=== PATIENT | female | born 1985 ===

== ENCOUNTER 2023-03-23 16:05 | Inpatient (IN) | payer OTHER, MEDICAID ==
[~2023-03-23] VITALS: Ht 167.6 cm; Wt 121.6 kg
[~2023-03-23 16:05] MED LIST: IBU600 MG PO; PERCOCET 325 MG1 TA2 PO; PROFERRIN ES12 MG PO; STOOL SOFTENER100 M2 PO
[2023-03-31] VITALS (14 sets, daily range): BP systolic 83–137; BP diastolic 43–74; PULSE 55–81; TEMP 97.8
[2023-03-31] MEDS ORDERED: LR 1,000 ML IV SCH ×2 (05:30→07:15)
[2023-03-31 06:30] LABS: BASO % 0.3 % (0.0-2.0); EOS # 0.2 K/mm3 (0.0-0.7); EOS % 2.2 % (0.0-4.0); GRAN # 5.2 K/mm3 (1.4-6.5); GRAN % 58.8 % (42.2-75.2); HEMOGLOBIN 10.5 g/dl (12.5-16.0); LYMPH # 2.8 K/mm3 (1.2-3.4); LYMPH % 32.3 % (20.0-51.0); MEAN CELL VOLUME 89 fl (80.0-100.0); MEAN CORPUSCULAR HEMOGLOBIN 29 pg (27-31); MEAN CORPUSCULAR HGB CONC 33 g/dl (33.0-37.0); MEAN PLATELET VOLUME 9.9 fl (7.4-10.4); MONO # 0.5 K/mm3 (0.1-0.6); MONO % 5.4 % (1.7-9.3); PLATELET COUNT 233 K/mm3 (130-400); RED BLOOD COUNT 3.59 M/mm3 (4.10-5.30); REDCELL DISTRIBUTION WIDTH-CV 14.2 % (11.5-14.5)
[2023-03-31 06:32] LABS: HEMATOCRIT 31.9 % (37.0-47.0)
[2023-03-31] MEDS ORDERED: METHYLFOLATE1 EAC1 PO (06:36)
[2023-03-31] MEDS ORDERED: PRENATAL TABLET PO (06:38)
[2023-03-31] MEDS ORDERED: Ketorolac 30 MG/ML VIAL ONE (06:56)
[2023-03-31] MEDS ORDERED: Phenylephrine 10 MG/ML VIAL ONE (06:56)
[2023-03-31] MEDS ORDERED: Oxytocin 10 UNITS/ML VIAL ONE (06:56)
[2023-03-31] MEDS ORDERED: dexAMETHasone 10 MG/ML VIAL ONE (06:56)
[2023-03-31] MEDS ORDERED: NS 30 ML IV ONE (06:56)
[2023-03-31] MEDS ORDERED: Ondansetron 4 MG/2 ML VIAL ONE (06:56)
[2023-03-31] MEDS ORDERED: EPINEPHrine 1 MG/1 ML Ampule ONE (06:56)
[2023-03-31] MEDS ORDERED: Magnes Hydrox (MOM) 80 MG/ML 30 ML CUP PO PRN (08:30)
[2023-03-31] MEDS ORDERED: Loratadine 10 MG TAB PO PRN (08:30)
[2023-03-31] MEDS ORDERED: Prenatal Vitamins/Iron/FA TAB PO SCH (09:00)
[2023-03-31] MEDS ORDERED: LR 1,000 ML IV PRN (09:30)
[2023-03-31] MEDS ORDERED: Naloxone 0.4 MG/ML VIAL IV PRN (09:30)
[2023-03-31] MEDS ORDERED: oxyCODONE 5 MG TAB PO PRN (09:30)
[2023-03-31] MEDS ORDERED: diphenhydrAMINE 50 MG/ML 1 ML VIAL IV PRN (09:30)
[2023-03-31] MEDS ORDERED: Ondansetron 4 MG/2 ML VIAL IV PRN ×2 (09:30)
[2023-03-31] MEDS ORDERED: Morphine 4 MG/ML VIAL IV PRN (09:30)
[2023-03-31] MEDS ORDERED: Acetaminophen 500 MG TAB PO SCH (09:30)
[2023-03-31] MEDS ORDERED: Measles/Mumps/Rubella Virus Vaccine Live w Diluent 0.5 ML VIAL SQ SCH (09:30)
--- NOTE | 2023-03-31 13:04 | NUR ---
Tylenol 1000 mg given as ordered and per protocol. Denies any other needs at this time.
[2023-03-31] MEDS ORDERED: Ibuprofen 600 MG TAB PO SCH (14:22)
--- NOTE | 2023-03-31 14:22 | NUR ---
Visits with family. Ibuprofen 600 mg given per request and as ordered.
[2023-03-31] MEDS ORDERED: Sennosides/Docusate 8.6-50 MG TAB PO SCH (17:00)
[2023-03-31] MEDS ORDERED: traZODone 50 MG TAB PO PRN (21:00)
[2023-04-01 00:30] VITALS: BP 125/49; PULSE 56; TEMP 98.1
[2023-04-01 04:45] VITALS: BP 135/63; PULSE 65; TEMP 97.7
[2023-04-01 08:01] LABS: HEMOGLOBIN 9.6 g/dl (12.5-16.0)
[2023-04-01] MEDS ORDERED: TYLENOL 500MG500 MG PO (08:26)
[2023-04-01] MEDS ORDERED: ROXICODONE 55 MG/TAB PO (08:26)
[2023-04-01 08:50] VITALS: BP 114/70; PULSE 68; TEMP 97.6
--- NOTE | 2023-04-01 09:51 | NUR ---
Initial visit attempt; Patient out of room, [employer] left card offering congratulations and God's blessings for the of their son and information regarding the availability of [facility] at our hospital.
== END 2023-04-01 11:40 | disposition home or self-care (01) | DRG 788 ==
LOC: OB
PROVIDERS: ADMIT Obstetrics & Gynecology
PROC: 10D00Z1 Extraction of Products of Conception, Low, Open Approach (ICD-10-PCS; principal; 2023-03-31)
DX: O34.211 Maternal care for low transverse scar from previous cesarean delivery (principal); Z3A.39 39 weeks gestation of pregnancy; Z37.0 Single live birth; O99.214 Obesity complicating childbirth; K21.9 Gastro-esophageal reflux disease without esophagitis; O99.62 Diseases of the digestive system complicating childbirth; O36.63X0 Maternal care for excessive fetal growth, third trimester, not applicable or unspecified; O99.02 Anemia complicating childbirth; D64.9 Anemia, unspecified
CPT/HCPCS: J0171; J0665; J0690; J1100; J1885; J2371; J2405; J2590; J7120